=== PATIENT | female | born 1950 | race Caucasian/White ===

== ENCOUNTER → 2016-06-01 09:29 | Outpatient (CLI) | payer MEDICARE, OTHER ==
[2016-03-22 01:11] VITALS: BMI 42.1
[~2016-06-01 09:29] MED LIST: CATAPRES0.2 MG PO; HYDROCHLOROTHIA50 MG PO; LEVAQUIN500 MG PO; VASOTEC20 MG PO
== END | disposition home or self-care (01) ==
LOC: D.RT 05-10 10:00 → D.RAD 05-10 11:00 → D.LAB 05-10 11:30 → D.RT 09:29
DX: J44.9 Chronic obstructive pulmonary disease, unspecified (principal)

== ENCOUNTER → 2016-06-27 11:22 | Outpatient (CLI) | payer MEDICARE, OTHER ==
[2016-03-22 01:11] VITALS: BMI 42.1
== END | disposition home or self-care (01) ==
LOC: D.RAD 11:22
DX: R43.0 Anosmia (principal)

== ENCOUNTER → 2017-05-08 09:27 | Outpatient (CLI) | payer MEDICARE ==
[2016-03-22 01:11] VITALS: BMI 42.1
--- NOTE | ~2017-05-08 | EC ---
PATIENT:ONOFRE KO DATE OF SERVICE: 05/08/17 SEX: F MEDICAL RECORD: [id number] DATE OF : 48 LOCATION:[facility] AGE OF PATIENT: 66 ADMISSION DATE: 05/08/17 REFERRING PHYSICIAN: INTERPRETING PHYSICIAN: MIRLANDE ROSADO MD ECHOCARDIOGRAM REPORT ECHO CHARGES 4 ECHO COMPLETE CLINICAL DIAGNOSIS: PVD/EDEMA/MURMUR ECHOCARDIOGRAPHIC MEASUREMENTS (adult normal given) AC root (d.<3.7cm) 3.1 cm LV Septum d (<1.2 cm> 1.4 cm Valve Excursion 1.9 cm LV Septum (systole) 2.4 cm Left Atria (s.<4.0cm> 3.9 cm LVPW d(<1.2cm) 1.1 cm RV (d.<2.3cm) 3.1 cm LVPW (sytole) 2.2 cm LV diastole(<5.6CM) 5.1 cm MV E-F(>70mm/sec) cm LV systole 2.0 cm LVOT Diameter 1.8 cm MV exc.(>10mm) cm Est.ejection fraction (50-75%) % Pericardial Effusion N DOPPLER: LVIT cm/sec A 60.0 cm/sec E 100 cm/sec LA cm/sec RVSP 17.0 mmHg LVOT 92.0 cm/sec AOP1/2T m/s Asc. Ao 135 cm/sec RVOT 54.0 cm/sec RA cm/sec PA 113 cm/sec AV Gradient Peak 7.3 mmHg AV Mean 3.3 mmHg AV Area 2.0 cm MV Gradient Peak 5.9 mmHg MV Mean 2.5 mmHg MV Area cm COMMENTS: Groundhand: Rigo BUSBY [employer] Machine Tender: 1 Dr. Rosado TAPE# PACS DATE OF SERVICE: 05/08/2017 PROCEDURE: Echocardiogram. FINDINGS: 1. Left ventricle chamber size is within normal limits. Left ventricular systolic function is normal. Overall ejection fraction estimated at 60%. 2. Left atrium is within normal limits at 3.9 cm. Right atrium and right ventricular chamber sizes are mildly dilated. 3. Valvular structures have normal structure and motion. ECHOCARDIOGRAM REPORT [id number] ONOFRE KO 4. Doppler interrogation only reveals trace mitral regurgitation. No other valvular insufficiency or stenosis. 5. No evidence of pericardial effusion or left ventricular thrombus. TRANSINT:[id number] Voice Confirmation ID: [id number] DOCUMENT ID: [id number] MIRLANDE ROSADO MD at 1800 CC: [id number] DICTATION DATE: 05/09/17 1207 GROUP EXERCISE CLASS INSTRUCTOR: 05/09/17 1303 DEP CLI 05/08/17 [place] [id number]
== END | disposition home or self-care (01) ==
LOC: D.ECHO 09:27
DX: I73.9 Peripheral vascular disease, unspecified (principal)

== ENCOUNTER → 2017-06-16 20:03 | Outpatient (CLI) | payer MEDICARE ==
[2016-03-22 01:11] VITALS: BMI 42.1
== END | disposition home or self-care (01) ==
LOC: D.MAMMO 13:15
DX: Z12.31 Encounter for screening mammogram for malignant neoplasm of breast (principal)

== ENCOUNTER → 2018-01-31 11:08 | Outpatient (CLI) | payer MEDICARE ==
[2016-03-22 01:11] VITALS: BMI 42.1
== END | disposition home or self-care (01) ==
LOC: D.US 11:08
DX: R60.0 Localized edema (principal)

== ENCOUNTER → 2018-02-14 10:35 | Outpatient (CLI) | payer MEDICARE ==
[2016-03-22 01:11] VITALS: BMI 42.1
== END | disposition home or self-care (01) ==
LOC: D.RAD 10:35
DX: R05 Cough (principal)